=== PATIENT | male | born 2000 | race Caucasian/White ===

== ENCOUNTER 2023-05-01 06:31 | Day surgery (SDC) | payer OTHER ==
[~2023-05-01] VITALS: Ht 185.4 cm; Wt 85.9 kg
[2023-05-01] MEDS ORDERED: PROPOFOL 1% 20 ML VIAL IVP ONE (06:32)
[2023-05-01] MEDS ORDERED: DEXAMETHASONE SOD PHOS 4 MG/ML VIAL IVP ONE (06:32)
[2023-05-01] MEDS ORDERED: SUGAMMADEX SODIUM 200 MG/2 ML VIAL IVP ONE (06:32)
[2023-05-01] MEDS ORDERED: LIDOCAINE/PF 2% 5 ML SYRINGE IVP ONE (06:32)
[2023-05-01] MEDS ORDERED: ONDANSETRON HCL 4 MG/2 ML VIAL IVP ONE (06:32)
[2023-05-01] MEDS ORDERED: ROCURONIUM BROMIDE 10 MG/ML 5 ML VIAL IVP ONE (06:32)
[2023-05-01] MEDS ORDERED: MIDAZOLAM HCL 2 MG/2 ML VIAL IVP ONE (06:32)
[2023-05-01] MEDS ORDERED: FentaNYL CITRATE PF 100 MCG/2 ML VIAL IVP ONE (06:32)
[2023-05-01] MEDS ORDERED: AMPICILLIN SODIUM 2 GM/NS 100 ML IV ONE (08:08)
[2023-05-01] MEDS ORDERED: RINGERS SOLUTION,LACTATED 1,000 ML IV ONE (08:30)
[2023-05-01 08:47] LABS: BASOPHILS % (AUTO) 0.5 % (0.0-2.0); EOSINOPHILS % (AUTO) 2.1 % (1.0-6.0); HEMATOCRIT 44.4 % (41-53); HEMOGLOBIN 14.8 g/dL (13.5-17.5); LYMPHOCYTES # (AUTO) 1.8 K/uL (1.0-4.8); LYMPHOCYTES % (AUTO) 31.1 % (22.0-44.0); MEAN CORPUSCULAR HEMOGLOBIN 31.9 pg (26.0-34.0); MEAN CORPUSCULAR HGB CONC 33.2 G/dL (31.0-37.0); MEAN CORPUSCULAR VOLUME 96 fL (80-100); MONOCYTES # (AUTO) 0.5 K/uL (0.1-1.0); MONOCYTES % (AUTO) 9.2 % (2.0-9.0); NEUTROPHILS # (AUTO) 3.4 K/uL (1.8-7.7); NEUTROPHILS % (AUTO) 57.1 % (40.0-70.0); PLATELET COUNT (AUTO) 222 K/uL (150-450); RED BLOOD CELL COUNT(AUTO) 4.63 MIL/uL (4.50-5.90); RED CELL DISTRIBUTION WIDTH 13.1 % (11.5-14.5)
[2023-05-01 09:00] LABS: ANION GAP 12 mmol/L (8-16); CARBON DIOXIDE 28 mmol/L (22-29); CHLORIDE 101 mmol/L (98-107); CREATININE 0.83 mg/dL (0.60-1.30); GLOMERULAR FILTR. RATE CALC > 60 mL/min (>60); GLUCOSE,RANDOM 91 mg/dL (70-110); POTASSIUM 3.7 mmol/L (3.5-5.1); SODIUM SERUM 141 mmol/L (136-145)
[2023-05-01 09:05] LABS: ALANINE AMINOTRANSFERASE 30 U/L (12-78); ALBUMIN 3.9 g/dL (3.4-5.0); ALKALINE PHOSPHATASE 90 U/L (46-116); ASPARTATE AMINOTRANSFERASE 17 U/L (15-37); BILIRUBIN,TOTAL 0.7 mg/dL (0.1-1.0); TOTAL PROTEIN, SERUM 7.2 g/dL (6.4-8.2)
[2023-05-01 09:08] LABS: INR 1.1 (0.9-1.1); PROTHROMBIN TIME 11.1 SEC (9.4-11.6)
[2023-05-01] MEDS ORDERED: ZOLP-280 PO (11:18)
[2023-05-01] MEDS ORDERED: PROP40TA7 PO (11:18)
[2023-05-01] MEDS ORDERED: OLAN5TAB52 PO (11:18)
== END 2023-05-01 13:35 | disposition home or self-care (01) ==
LOC: SURGERY 06:31
PROVIDERS: ATTEND Dentist General Practice
DX: K05.30 Chronic periodontitis, unspecified (principal); K02.9 Dental caries, unspecified; K03.6 Deposits [accretions] on teeth; F84.0 Autistic disorder; Z79.01 Long term (current) use of anticoagulants; Z79.899 Other long term (current) drug therapy; Z98.890 Other specified postprocedural states
CPT/HCPCS: 41899; 71045; 80053; 85025; 85610; 85730; 36415; 93005; J0290; J2704; J1100; J3010; J2250; J2405; J3490 ×2; Q9967; J7120

== ENCOUNTER 2024-09-10 15:31 | Emergency (ER) | payer OTHER ==
[~2024-09-10] VITALS: Ht 182.9 cm; Wt 90.9 kg
[~2024-09-10 15:31] MED LIST: OLAN5TAB52 PO; PROP40TA7 PO; ZOLP-280 PO
[2024-09-10 15:55] VITALS: BP 120/68; PULSE 94; RESP 18; TEMP 98.5; O2SAT 98
[2024-09-10 17:11] LABS: BASOPHILS % (AUTO) 0.6 % (0.0-2.0); EOSINOPHILS % (AUTO) 2.1 % (1.0-6.0); HEMATOCRIT 44.6 % (41-53); HEMOGLOBIN 15.2 g/dL (13.5-17.5); LYMPHOCYTES # (AUTO) 2.3 K/uL (1.0-4.8); LYMPHOCYTES % (AUTO) 26.4 % (22.0-44.0); MEAN CORPUSCULAR HEMOGLOBIN 32.1 pg (26.0-34.0); MEAN CORPUSCULAR HGB CONC 34.1 G/dL (31.0-37.0); MEAN CORPUSCULAR VOLUME 94 fL (80-100); MONOCYTES # (AUTO) 0.9 K/uL (0.1-1.0); MONOCYTES % (AUTO) 10.9 % (2.0-9.0); NEUTROPHILS # (AUTO) 5.1 K/uL (1.8-7.7); PLATELET COUNT (AUTO) 229 K/uL (150-450); RED BLOOD CELL COUNT(AUTO) 4.74 MIL/uL (4.50-5.90); RED CELL DISTRIBUTION WIDTH 12.5 % (11.5-14.5); WHITE BLOOD COUNT (AUTO) 8.5 K/uL (4.5-11.0)
[2024-09-10 17:17] LABS: ANION GAP 10 mmol/L (8-16); CALCIUM, TOTAL 8.7 mg/dL (8.8-10.5); CARBON DIOXIDE 27 mmol/L (22-29); CHLORIDE 103 mmol/L (98-107); CREATININE 0.84 mg/dL (0.60-1.30); GLOMERULAR FILTR. RATE CALC > 60 mL/min (>60); GLUCOSE,RANDOM 117 mg/dL (70-110); POTASSIUM 3.5 mmol/L (3.5-5.1); SODIUM SERUM 140 mmol/L (136-145); UREA NITROGEN, BLOOD 14 mg/dL (7-18)
[2024-09-10 17:21] LABS: ALCOHOL, BLOOD (SERUM) < 3 mg/dL (0-10)
== END 2024-09-11 00:09 | disposition home or self-care (01) ==
LOC: EMS 15:31
DX: F84.0 Autistic disorder (principal); Z79.899 Other long term (current) drug therapy
CPT/HCPCS: 99285; 80048; 85025; 36415; G0480

== ENCOUNTER 2024-10-08 18:28 | Emergency (ER) | payer OTHER ==
[~2024-10-08] VITALS: Ht 182.9 cm; Wt 110.0 kg
[2024-10-08 18:55] VITALS: TEMP 98.3
[2024-10-08 21:36] LABS: BASOPHILS % (AUTO) 1.1 % (0.0-2.0); HEMATOCRIT 44.4 % (41-53); HEMOGLOBIN 15.3 g/dL (13.5-17.5); LYMPHOCYTES # (AUTO) 3.6 K/uL (1.0-4.8); LYMPHOCYTES % (AUTO) 45.1 % (22.0-44.0); MEAN CORPUSCULAR HEMOGLOBIN 32.3 pg (26.0-34.0); MEAN CORPUSCULAR HGB CONC 34.4 G/dL (31.0-37.0); MEAN CORPUSCULAR VOLUME 94 fL (80-100); MONOCYTES # (AUTO) 0.8 K/uL (0.1-1.0); MONOCYTES % (AUTO) 9.8 % (2.0-9.0); NEUTROPHILS # (AUTO) 3.3 K/uL (1.8-7.7); PLATELET COUNT (AUTO) 252 K/uL (150-450); RED BLOOD CELL COUNT(AUTO) 4.74 MIL/uL (4.50-5.90); RED CELL DISTRIBUTION WIDTH 12.8 % (11.5-14.5); WHITE BLOOD COUNT (AUTO) 7.9 K/uL (4.5-11.0)
[2024-10-08 21:47] LABS: ANION GAP 10 mmol/L (8-16); CALCIUM, TOTAL 8.9 mg/dL (8.8-10.5); CARBON DIOXIDE 25 mmol/L (22-29); CHLORIDE 102 mmol/L (98-107); CREATININE 0.73 mg/dL (0.60-1.30); GLOMERULAR FILTR. RATE CALC > 60 mL/min (>60); GLUCOSE,RANDOM 95 mg/dL (70-110); POTASSIUM 3.9 mmol/L (3.5-5.1); SODIUM SERUM 137 mmol/L (136-145); UREA NITROGEN, BLOOD 10 mg/dL (7-18)
[2024-10-08 21:58] LABS: COVID AG,FIA SOURCE NASAL SWAB
[2024-10-08 22:01] LABS: ALCOHOL, BLOOD (SERUM) < 3 mg/dL (0-10)
[2024-10-08 22:16] LABS: SARS-COV2 (COVID) ANTIGEN,FIA Negative (Negative)
[2024-10-08] MEDS ORDERED: OLAN10TA74 PO (23:50)
[2024-10-09] MEDS: LORazepam 2 MG TABLET PO ONE ×2 (00:09→08:55)
[2024-10-09] MEDS: ZOLPIDEM TARTRATE 5 MG TABLET PO ONE (00:09)
[2024-10-09 03:08] VITALS: BP 122/68; PULSE 77; RESP 16; O2SAT 99
[2024-10-09] MEDS ORDERED: LORazepam 2 MG/ML VIAL IVP ONE (06:30)
[2024-10-09] MEDS: OLANZapine 10 MG TABLET PO ONE (08:30)
== END 2024-10-09 09:06 | disposition home or self-care (01) ==
LOC: EMS 18:30
DX: R45.1 Restlessness and agitation (principal); F84.0 Autistic disorder; R44.0 Auditory hallucinations; Z79.899 Other long term (current) drug therapy; Z20.822 Contact with and (suspected) exposure to COVID-19
CPT/HCPCS: 99284; 87426; 80048; 85025; G0480

== ENCOUNTER 2025-03-24 11:44 | Emergency (ER) | payer MEDICAID, OTHER ==
[~2025-03-24] VITALS: Ht 183.5 cm; Wt 108.6 kg
[~2025-03-24 11:44] MED LIST changes: +MELA5TAB21 PO; +MELA5TAB40 PO; +OLAN10TA26 PO; -OLAN5TAB52 PO; +PROP20TA7 PO; +PROP20TA96 PO; -PROP40TA7 PO; -ZOLP-280 PO
[2025-03-24] MEDS ORDERED: CLON-592 PO (11:52)
[2025-03-24 11:53] VITALS: BP 108/63; PULSE 89; RESP 18; TEMP 97.8; O2SAT 95
[2025-03-24] MEDS: ACETAMINOPHEN/CODEINE 300-30 MG TABLET PO ONE (13:54)
[2025-03-24] MEDS: LIDOCAINE 1% 10 ML VIAL SQ ONE (13:54)
[2025-03-24] MEDS: IBUPROFEN 600 MG TABLET PO ONE (13:55)
[2025-03-24] MEDS: BACITRACIN 0.9 GM PACKET OINTMENT TP ONE (14:27)
[2025-03-24] MEDS ORDERED: IBUP-1554 PO (14:28)
[2025-03-24] MEDS ORDERED: BACI28.410 TP (14:28)
[2025-03-24] MEDS ORDERED: CEPH-558 PO (14:28)
== END 2025-03-24 14:37 | disposition home or self-care (01) ==
LOC: EMS 11:50
DX: L03.032 Cellulitis of left toe (principal); F84.0 Autistic disorder; Z79.899 Other long term (current) drug therapy
CPT/HCPCS: 99283; 10060; J3490

== ENCOUNTER 2025-04-02 20:31 | Emergency (ER) | payer OTHER ==
[~2025-04-02] VITALS: Ht 182.9 cm; Wt 108.6 kg
[~2025-04-02 20:31] MED LIST changes: +BACI28.410 TP; +CEPH-558 PO; +CLON-592 PO; +IBUP-1554 PO; -MELA5TAB21 PO; -MELA5TAB40 PO; -PROP20TA7 PO
[2025-04-02 20:36] VITALS: TEMP 98.4
[2025-04-02 21:27] LABS: PLATELET COUNT (AUTO) 202 K/uL (150-450); RED BLOOD CELL COUNT(AUTO) 4.66 MIL/uL (4.50-5.90); RED CELL DISTRIBUTION WIDTH 13.0 % (11.5-14.5); WHITE BLOOD COUNT (AUTO) 7.1 K/uL (4.5-11.0)
[2025-04-02 21:37] LABS: CALCIUM, TOTAL 8.3 mg/dL (8.8-10.5); CREATININE 0.77 mg/dL (0.60-1.30); GLOMERULAR FILTR. RATE CALC > 60 mL/min (>60); GLUCOSE,RANDOM 127 mg/dL (70-110); SODIUM SERUM 140 mmol/L (136-145); UREA NITROGEN, BLOOD 12 mg/dL (7-18)
[2025-04-02 21:39] LABS: COVID AG,FIA SOURCE NASAL SWAB
[2025-04-02 21:59] LABS: SARS-COV2 (COVID) ANTIGEN,FIA Negative (Negative)
[2025-04-03 07:53] VITALS: BP 130/85; PULSE 77; RESP 18; O2SAT 99
== END 2025-04-03 10:23 | disposition home or self-care (01) ==
LOC: EMS 20:31
DX: F84.0 Autistic disorder (principal); F79 Unspecified intellectual disabilities; Z20.822 Contact with and (suspected) exposure to COVID-19; Z79.899 Other long term (current) drug therapy
CPT/HCPCS: 99285; 87426; 80048; 85025; 36415; G0480

== ENCOUNTER 2025-07-09 00:46 | Emergency (ER) | payer OTHER ==
[~2025-07-09] VITALS: Ht 177.8 cm; Wt 90.9 kg
[2025-07-09 02:32] LABS: PLATELET COUNT (AUTO) 205 K/uL (150-450); RED BLOOD CELL COUNT(AUTO) 4.81 MIL/uL (4.50-5.90); RED CELL DISTRIBUTION WIDTH 12.9 % (11.5-14.5); WHITE BLOOD COUNT (AUTO) 9.5 K/uL (4.5-11.0)
[2025-07-09 02:47] LABS: CALCIUM, TOTAL 8.9 mg/dL (8.8-10.5); CREATININE 0.71 mg/dL (0.60-1.30); GLOMERULAR FILTR. RATE CALC > 60 mL/min (>60); GLUCOSE,RANDOM 199 mg/dL (70-110); SODIUM SERUM 138 mmol/L (136-145); UREA NITROGEN, BLOOD 10 mg/dL (7-18)
[2025-07-09 06:10] LABS: COVID AG,FIA SOURCE NASAL SWAB
[2025-07-09 06:19] LABS: SARS-COV2 (COVID) ANTIGEN,FIA Negative (Negative)
[2025-07-09 11:55] VITALS: BP 114/69; PULSE 87; RESP 18; O2SAT 99
== END 2025-07-09 12:18 | disposition home or self-care (01) ==
LOC: EMS 00:49
DX: R45.1 Restlessness and agitation (principal); F79 Unspecified intellectual disabilities; F84.0 Autistic disorder; Z79.899 Other long term (current) drug therapy; Z20.822 Contact with and (suspected) exposure to COVID-19
CPT/HCPCS: 99285; 87426; 80048; 85025; 36415; G0480